=== PATIENT | male | born 1995 | race African-American/Black ===

== ENCOUNTER 2019-07-13 22:22 | Emergency (ER) | payer OTHER ==
[~2019-07-13] VITALS: Ht 177.8 cm; Wt 88.5 kg
--- NOTE | 2019-07-13 22:37 | NUR ---
SEEN AND EXAMINED BY
--- NOTE | 2019-07-13 22:47 | NUR ---
PT IN BED 10, BIB [facility] WITH C/O RIGHT FOREARM ABSCESS. PT HAS HX OF HIV. PATIENT UNABLE TO PROVIDE ANSWERS ON HOW LONG PT HAS HAD ABSCESS FOR. PT UNABLE TO PROVIDE PAIN LEVEL. PT IS AAOX4, BUT DOES NOT RESPOND TO ANY QUESTIONS ASKED. NO SOB. BREATHING EVENLY AND UNLABORED. CONNECTED TO MONITOR.
[2019-07-13] MEDS ORDERED: LIDOCAINE 1% INJ 50 ML MDV IJ ONE (23:21)
[2019-07-13] MEDS ORDERED: BACI/NEOM/POLY B OINT PKT 1 UDPKT PACKET TP ONE (23:30)
[2019-07-13] MEDS ORDERED: LIDOCAINE 1%-EPI 1:100,000 20 ML VIAL TP ONE (23:30)
--- NOTE | 2019-07-14 00:05 | NUR ---
DR. NEVES AT BEDSIDE FOR INCISION AND DRAINAGE PROCEDURE.
[2019-07-14 01:10] VITALS: BP 129/76
--- NOTE | 2019-07-14 01:10 | NUR ---
Patient discharged to home in stable condition. Written and verbal after care instructions given. Patient verbalizes understanding of instruction.
== END 2019-07-14 01:14 | disposition home or self-care (01) ==
LOC: ER 22:23
DX: L03.113 Cellulitis of right upper limb (principal)
CPT/HCPCS: 10060; 99283; J3490

== ENCOUNTER 2019-11-03 11:36 | Emergency (ER) | payer MEDICAID, OTHER ==
[~2019-11-03] VITALS: Ht 170.2 cm; Wt 97.5 kg
[2019-11-03] MEDS ORDERED: OLANZAPINE 10 MG VIAL IM ONE (11:47)
[2019-11-03] MEDS ORDERED: OLANZAPINE 5 MG TABLET ONE (11:48)
[2019-11-03] MEDS ORDERED: OLANZAPINE 5 MG TABLET PO ONE (12:00)
--- NOTE | 2019-11-03 12:00 | NUR ---
Suicidal precautions initiated upon arrival. Undressed/wanded for contraband. Sitter at bedside in direct line of sight.
[2019-11-03 12:10] LABS: BASOPHILS % (AUTO) 0.4 % (0.0-2.0); EOSINOPHILS % (AUTO) 2.4 % (0.0-6.0); HEMATOCRIT 39 % (39-51); HEMOGLOBIN 13.1 g/dL (13.5-17.5); LYMPHOCYTES # (AUTO) 2.2 /CMM (0.8-4.8); LYMPHOCYTES % (AUTO) 30.7 % (20.0-44.0); MEAN CORPUSCULAR HGB CONC 33 g/dl (31.0-36.0); MEAN CORPUSCULAR VOLUME 97 fL (80-96); MONOCYTES # (AUTO) 0.6 /CMM (0.1-1.30); MONOCYTES % (AUTO) 8.9 % (2.0-12.0); NEUTROPHILS % (AUTO) 57.6 % (43.0-81.0); PLATELET COUNT (AUTO) 233 /CMM (150-450); RED BLOOD CELL COUNT(AUTO) 4.06 MIL/uL (4.5-6.0)
[2019-11-03 12:27] LABS: ACETAMINOPHEN < 2 ug/ml (10-30); ALANINE AMINOTRANSFERASE 107 U/L (12-78); ALBUMIN 3.5 g/dL (3.4-5.0); ALCOHOL, BLOOD < 3 mg/dL (0-0); ALKALINE PHOSPHATASE 81 U/L (46-116); ASPARTATE AMINOTRANSFERASE 80 U/L (15-37); BILIRUBIN,DIRECT 0.2 mg/dL (0.0-0.2); BILIRUBIN,TOTAL 0.8 mg/dL (0.2-1.0); CALCIUM, SERUM 8.6 mg/dL (8.5-10.1); CARBON DIOXIDE 24 mmol/L (21-32); CHLORIDE 106 mmol/L (98-107); GLUCOSE 94 mg/dL (74-106); POTASSIUM 3.6 mmol/L (3.5-5.1); SALICYLATE 0.7 mg/dL (2.8-20.0); SODIUM SERUM 139 mmol/L (136-145); TOTAL PROTEIN, SERUM 8.4 g/dL (6.4-8.2); UREA NITROGEN, BLOOD 12 mg/dL (7-18)
[2019-11-03 13:28] LABS: APPEARANCE,URINE Clear (CLEAR); BILIRUBIN,URINE Negative (NEGATIVE); BLOOD, URINE Small Ery/uL (NEGATIVE); COLOR,URINE Yellow (YELLOW); KETONES,URINE 15 (NEGATIVE); LEUKOCYTE ESTERASE ,URINE Negative (NEGATIVE); NITRITE, URINE Negative (NEGATIVE); PH,URINE 5.5 (5.0-8.0); PROTEIN,URINE Negative (NEGATIVE); UGLUCOSE Negative (NEGATIVE); UROBILINOGEN,URINE 0.2 EU/dL (0.2)
[2019-11-03 13:36] LABS: BACTERIA,URINE Rare /HPF (None Seen); SQUAMOUS EPITHELIAL CELL,UR Few /HPF (None Seen); WBC,URINE NONE SEEN /HPF (0-3)
--- NOTE | 2019-11-03 13:58 | NUR ---
[facility] [phone]
--- NOTE | 2019-11-03 14:00 | NUR ---
Patient remain asleep but arousable sitter @ bedside awaiting for [employer]
--- NOTE | 2019-11-03 14:36 | NUR ---
[facility] CALLED BACK AND WILL BE HERE IN A LITTLE WHILE.
--- NOTE | 2019-11-03 19:15 | NUR ---
[facility] care to [facility]
[2019-11-03 20:25] VITALS: BP 127/71
--- NOTE | 2019-11-03 20:25 | NUR ---
Patient given written and verbal discharge instructions. Patient verbalizes understanding of instructions. Patient is ambulatory with steady gait. Refuses offer of prison placement. Patient given list of available shelters in surrounding area.
== END 2019-11-03 20:27 | disposition home or self-care (01) ==
LOC: ER 11:38
DX: R45.851 Suicidal ideations (principal); Z59.0 Homelessness
CPT/HCPCS: 36415; 80048; 80076; 80305; 80307; 80329; 81001; 85025; 99285; G0480; 81000-TC; J3490